=== PATIENT | female | born 1945 | race Caucasian/White ===

== ENCOUNTER → 2019-10-25 | Outpatient (CLI) | payer MEDICARE | END | disposition home or self-care (01) | LOC: SHCH 10:50 | PROVIDERS: ATTEND Internal Medicine Cardiovascular Disease | DX: I07.1 Rheumatic tricuspid insufficiency (principal) | CPT/HCPCS: 93306; 93356 ==

== ENCOUNTER 2022-07-14 16:32 | Emergency (ER) | payer MEDICARE ==
[~2022-07-14] VITALS: Ht 170.2 cm; Wt 79.4 kg
[2022-07-14 17:12] LABS: HEMATOCRIT 34.6 % (36-48); MEAN CORPUSCULAR HEMOGLOBIN 29.3 pg (27.0-33.0); MEAN CORPUSCULAR HGB CONC 33.8 g/dL (32.0-36.0); MEAN CORPUSCULAR VOLUME 86.7 fL (79-99); RED BLOOD CELL COUNT(AUTO) 3.99 MIL/uL (4.00-5.50); RED CELL DISTRIBUTION WIDTH 14.4 % (11.0-15.5)
[2022-07-14 17:21] LABS: POTASSIUM 3.8 mmol/L (3.5-5.1)
[2022-07-14 17:24] LABS: APPEARANCE,URINE CLEAR (CLEAR); BILIRUBIN,URINE NEGATIVE (NEGATIVE); COLOR,URINE COLORLESS (YELLOW); GLUCOSE, URINE (UA) NEGATIVE (NEGATIVE); KETONES,URINE NEGATIVE (NEGATIVE); LEUKOCYTE ESTERASE ,URINE 25 Leu/uL (NEGATIVE); NITRATE,URINE NEGATIVE (NEGATIVE); OCCULT BLOOD,URINE NEGATIVE (NEGATIVE); PH,URINE 5.5 (5.0-8.0); PROTEIN,URINE NEGATIVE (NEGATIVE); UROBILINOGEN,URINE 0.2 mg/dL (0.2-1.0)
[2022-07-14 17:26] LABS: ALBUMIN 3.6 g/dL (3.5-5.0); TOTAL PROTEIN, SERUM 6.9 g/dL (6.0-8.3)
[2022-07-14 17:28] LABS: BACTERIA,URINE RARE /HPF (None Seen); MUCUS,URINE RARE LPF (None Seen); RBC,URINE 0-1 /HPF (0-1)
[2022-07-14] MEDS ORDERED: LORAZEPAM 2 MG/ML 1 ML VIAL ONE (19:46)
[2022-07-14] MEDS ORDERED: LORAZEPAM 2 MG/ML 1 ML VIAL IVP ONE (20:00)
[2022-07-14 21:32] VITALS: BP 128/62
== END 2022-07-14 21:37 ==
LOC: EDH 16:32
DX: S09.8XXA Other specified injuries of head, initial encounter (principal); I10 Essential (primary) hypertension; E03.9 Hypothyroidism, unspecified; E11.9 Type 2 diabetes mellitus without complications; E78.00 Pure hypercholesterolemia, unspecified; G30.9 Alzheimer's disease, unspecified; F02.83 Dementia in other diseases classified elsewhere, unspecified severity, with mood disturbance; F02.84 Dementia in other diseases classified elsewhere, unspecified severity, with anxiety; F20.9 Schizophrenia, unspecified; F31.9 Bipolar disorder, unspecified; W18.39XA Other fall on same level, initial encounter; Y93.89 Activity, other specified; Y92.218 Other school as the place of occurrence of the external cause; Y99.8 Other external cause status
CPT/HCPCS: 99285; 70450; 96374; 80053; 85027; 81001; 36415; 72125; J2060

== ENCOUNTER 2022-11-09 10:53 | Emergency (ER) | payer MEDICARE ==
[~2022-11-09] VITALS: Ht 162.6 cm; Wt 68.0 kg
[2022-11-09 11:29] LABS: EOSINOPHILS % (AUTO) 0.4 % (0.0-8.0); HEMATOCRIT 38.3 % (36-48); LYMPHOCYTES % (AUTO) 13.4 % (21.0-51.0); MEAN CORPUSCULAR HEMOGLOBIN 30.1 pg (27.0-33.0); MEAN CORPUSCULAR HGB CONC 33.7 g/dL (32.0-36.0); MEAN CORPUSCULAR VOLUME 89.5 fL (79-99); MONOCYTES % (AUTO) 7.7 % (3.0-13.0); NEUTROPHILS % (AUTO) 78.3 % (40.0-77.0); PLATELET COUNT (AUTO) 136 K/uL (130-400); RED BLOOD CELL COUNT(AUTO) 4.28 MIL/uL (4.00-5.50); WHITE BLOOD COUNT (AUTO) 5.2 K/uL (4.8-10.8)
[2022-11-09 12:30] LABS: ALBUMIN 3.9 g/dL (3.5-5.0); CREATININE 0.9 mg/dL (0.5-1.5); TOTAL PROTEIN, SERUM 7.6 g/dL (6.0-8.3)
[2022-11-09 13:49] LABS: POTASSIUM 4.1 mmol/L (3.5-5.1)
[2022-11-09] MEDS ORDERED: 0.9% NACL 500ML IV.SOLN 500 ML IV SCH (14:00)
[2022-11-09 15:35] VITALS: BP 146/54
== END 2022-11-09 15:34 | disposition home or self-care (01) ==
LOC: EDH 10:53
DX: F03.90 Unspecified dementia, unspecified severity, without behavioral disturbance, psychotic disturbance, mood disturbance, and anxiety (principal); E86.0 Dehydration; F41.9 Anxiety disorder, unspecified; F32.A Depression, unspecified; I10 Essential (primary) hypertension; E03.9 Hypothyroidism, unspecified; E11.9 Type 2 diabetes mellitus without complications; F20.9 Schizophrenia, unspecified; W18.30XA Fall on same level, unspecified, initial encounter; Y93.89 Activity, other specified; Y92.89 Other specified places as the place of occurrence of the external cause; Y99.8 Other external cause status
CPT/HCPCS: 36415; 72170; 73030; 80053; 85025; 93005

== ENCOUNTER 2024-06-16 05:07 | Emergency (ER) | payer MEDICARE ==
[~2024-06-16] VITALS: Ht 160 cm; Wt 56.2 kg
[~2024-06-16 05:07] MED LIST: AMLO-257 PO; ATOR40TA69 PO; BISA10SU61 PR; DOCU100C33 PO; ERGO500093 PO; LACT10SO9 PO; LEVO112C4 PO; LORA0.5T83 PO; MELA5CAP PO; NEOM28.44 TP; OLAN5TAB76 PO; ONDA-104 PO; SIME80TA12 PO; TRAZ-187 PO; VITAD50000 PO
--- NOTE | 2024-06-16 05:35 | ERN ---
General Chief Complaint: Abdominal Pain Stated Complaint: POSSIBLE BOWEL OBSTRUCTION Time Seen by MD: 05:15 History of Present Illness Initial Comments 79-year-old female brought in by EMS from [facility] for possible bowel obstruction. Patient had a bowel obstruction last week that had resolved. According to EMS, the long term staff reports that the patient has not had a stool in a couple of days, and began having distention of the abdomen and vomited possible feces earlier in the day. They underwent a KUB which shows possible bowel obstruction. Patient does not communicate due to advanced dementia. Patient is a DNR. Allergies: Coded Allergies: No Known Drug Allergies (Unverified Allergy, Unknown, 07/14/22) Home Meds Reported Medications Melatonin (Melatonin) 5 Mg Capsule, 1 CAP PO HS for sleep for 30 Days, #30 CAP 0 Refills 06/10/24 Olanzapine (Olanzapine) 5 Mg Tablet, 1 TAB PO HS for 30 Days, #30 TAB 0 Refills 06/10/24 Ergocalciferol (Vitamin D2) (Vitamin D2) 1,250 Mcg (52462 Unit) Capsule, 1 CAP PO QWEEK for 28 Days, #4 CAP 0 Refills 06/10/24 Levothyroxine Sodium (Levothyroxine) 112 Mcg Capsule, 1 CAP PO DAILY for 30 Days, #30 CAP 0 Refills 06/10/24 Lorazepam (Ativan) 0.5 Mg Tablet, 1 TAB PO TID PRN for anxiety for 30 Days, #60 TAB 0 Refills 06/10/24 Neomycn/Baci Zn/Pmyx Bs/Pramox (Triple Antibiotic Plus Ointmnt) 3.5-10K-10 Oint...g., 28.4 GM TP DAILY 06/10/24 Ondansetron HCl (Ondansetron HCl) 4 Mg Tablet, 4 MG PO TID PRN for NAUSEA/VOMITING, TAB 06/10/24 Bisacodyl (Dulcolax) 10 Mg Supp.rect, 1 SUPP LA DAILY PRN for CONSTIPATION for 10 Days, #10 SUPP 0 Refills 06/10/24 Simethicone (Simethicone) 80 Mg Tab.chew, 40 MG PO TID PRN for GI GAS, TAB.CHEW 12/31/23 Cholecalciferol (Vitamin D3) 1,250 Mcg (27866 Unit) Cap, 25678 UNITS PO DAILY, CAP 12/31/23 Lactulose (Lactulose) 20 Gram/30 Ml Solution, 20 GM PO DAILY for ELEVATED AMMONIA LEVEL, ML 12/31/23 Docusate Sodium (Docusate Sodium) 100 Mg Capsule, 100 MG PO DAILY, CAP 12/31/23 Amlodipine Besylate (Amlodipine Besylate) 5 Mg Tablet, 5 MG PO BID, TAB 12/31/23 Trazodone HCl (Trazodone HCl) 100 Mg Tablet, 100 MG PO HS, TAB 12/31/23 Atorvastatin Calcium (LIPITOR) 40 Mg Tablet, 40 MG PO HS, TAB 12/31/23 Discontinued Reported Medications Lisinopril (Lisinopril) 10 Mg Tablet, 10 MG PO DAILY, TAB 12/31/23 Levothyroxine Sodium (Levothyroxine) 137 Mcg Capsule, 137 MCG PO DAILY, CAP 12/31/23 Olanzapine (Zyprexa) 7.5 Mg Tablet, 7.5 MG PO DAILY, TAB 12/31/23 Past Medical History Past Medical History: Anxiety, Arthritis, Bipolar, Diabetes-Type II, High Cholesterol, Hypertension, Other Medical History Other: ALZHEIMERS, BOWEL OBSTRUCTION Past Surgical History: Unknown ROS Dictation Unable to obtain due to patient's baseline dementia. Physical Exam Physical Exam Dictation VITAL SIGNS: Reviewed. GENERAL APPEARANCE: Frail, advanced age, demented unable to speak, no obvious distress HEAD AND FACE: Non-traumatic. EYES: PERRL, pink conjunctivas, eyelid no trauma, anterior chamber clear. EARS: Pinnas intact and no signs of trauma or erythema. Ear canals clear and no discharge. TMs no erythema. NOSE: No discharge, no bleeding. OROPHARYNX: Mouth normal, teeth no caries, tongue pink. Pharynx clear, no erythema. Tonsils no exudates, no abscesses noted. Mucous membrane moist. NECK: Supple, non-tender, no thyromegaly, no masses, no JVD, no bruits. BREAST: Deferred. CHEST: No tenderness, no crepitus, no paradoxical movement, no retractions. LUNGS: Clear, well-ventilated, symmetric, no rales, no wheezing, no rhonchi, no stridor, good breath sounds bilaterally. HEART: Regular rate, regular rhythm, no murmur, no gallops. VASCULAR: No peripheral edema. ABDOMEN: Moderate distention RECTAL: Deferred. GENITAL: Deferred. NEUROLOGICAL: Baseline mentation, does not speak MUSCULOSKELETAL: Does not ambulate EXTREMITIES: Nontender, full range of motion. SKIN: Color pink, dry, no turgor, no rash, no lacerations, no abrasions, no contusions. LYMPHATICS: Deferred. Results Laboratory and Microbiology Lab and Micro Result Laboratory Tests Test 06/16/24 05:39 White Blood Count 10.8 K/uL (4.8-10.8) Red Blood Count 4.88 MIL/uL (4.00-5.50) Hemoglobin 14.1 g/dL (12.0-16.0) Hematocrit 43.4 % (36-48) Mean Corpuscular Volume 88.9 fL (79-99) Mean Corpuscular Hemoglobin 28.9 pg (27.0-33.0) Mean Corpuscular Hemoglobin Concent 32.5 g/dL (32.0-36.0) Red Cell Distribution Width 14.4 % (11.0-15.5) Platelet Count 141 K/uL (130-400) Mean Platelet Volume 11.8 fL (7.5-10.5) H Immature Granulocyte % (Auto) 0.4 % (0-1) Neutrophils (%) (Auto) 88.5 % (40.0-77.0) H Lymphocytes (%) (Auto) 4.6 % (21.0-51.0) L Monocytes (%) (Auto) 6.2 % (3.0-13.0) Eosinophils (%) (Auto) 0.2 % (0.0-8.0) Basophils (%) (Auto) 0.1 % (0.0-5.0) Neutrophils # (Auto) 9.5 K/uL (1.8-7.7) H Lymphocytes # (Auto) 0.5 K/uL (1.0-4.8) L Monocytes # (Auto) 0.7 K/uL (0.1-1.0) Eosinophils # (Auto) 0.02 K/uL (0.00-0.70) Basophils # (Auto) 0.01 K/uL (0.00-0.20) Absolute Immature Granulocyte (auto 0.04 K/uL (0-1) Nucleated Red Blood Cells 0.0 % (0.0-0.19) Sodium Level 148 mmol/L (136-145) H Potassium Level 4.0 mmol/L (3.5-5.1) Chloride Level 108 mmol/L (101-111) Carbon Dioxide Level 33 mmol/L (21-32) H Blood Urea Nitrogen 18 mg/dL (7-18) Creatinine 0.9 mg/dL (0.5-1.0) Glomerular Filtration Rate Calc 65 mL/min (>90) Random Glucose 240 mg/dL (70-105) H Lactic Acid Level 1.8 mmol/L (0.8-2.5) Total Calcium 9.4 mg/dL (8.5-10.1) Total Bilirubin 0.8 mg/dL (0.2-1.0) Direct Bilirubin 0.2 mg/dL (0.0-0.3) Aspartate Amino Transf (AST/SGOT) 18 U/L (10-37) Alanine Aminotransferase (ALT/SGPT) 25 U/L (12-78) Alkaline Phosphatase 87 U/L (50-136) Troponin I High Sensitivity 12 ng/L (4-50) Total Protein 7.2 g/dL (6.0-8.3) Albumin 3.7 g/dL (3.5-5.0) Lipase 467 U/L (16-77) H MDM CC: Vomiting and abdominal distention, concern for a bowel obstruction Historian: EMS. Patient has a history of dementia, unable to get any history because the patient does not communicate. I also reviewed the patient's chart. Comorbidities: Advanced age, advanced Alzheimer's dementia, breast cancer, high cholesterol, hypertension Limitations by social determinants of health: None Differential diagnosis: Bowel obstruction, perforation I have also derangement, deconditioning, sepsis, other. External chart review: I reviewed the discharge summary by Dr. Zamudio from the recent 06/10/2024 admission. The time of the patient had a possible bowel perforation which was ruled out, diagnosed with a bowel obstruction that resolved without surgery. EKG: Sinus rhythm rate of 74 left axis deviation good R-wave progression. Few ectopic beats. T-wave inversions lead V4 to V6. Goals of care: I had a goals of care conversation with the patient's son, Jose. He is the power of document review attorney. He reports that the patient was a DNR. He prefers conservative management at this time. He has not want any major surgeries, dialysis, intubation is or any other major treatments. He was okay with IV fluids, IV antibiotics, NG tube and minimally invasive procedures and treatments. CT scan Abdomen and pelvis without contrast (independently interpreted by me ): Right pleural effusion. Ascites. Gastric and small bowel dilation with air-fluid levelsconsistent with obstruction, no obvious free air or perforation. Labs: CBC has a left shift without leukocytosis. 88% neutrophils. No bands. Chemistry panel shows mild dehydration in the electrolytes, hyperglycemia glucose 240. Lipase 467. Troponin stable. Treatment in the ER: 2 L normal saline, 2 mg IV morphine, Zosyn IV, Dilaudid IV, NG tube placement For decompression. Consultations Radiologist: I spoke with the radiologist regarding the CT scan. He reports that there is possibly a volvulus and this is surgical fix. General surgery: He will evaluate the patient, but this is surgical patient was the patient does not want surgery recommendation is for palliative care. Hospitalist: Discussed case for admission. Patient was evaluated with the hospitalist, the patient family reports that they one hospitalization at this time. They prefer to go home for palliative care. They do not want any surgeries or further invasive treatments. No further blood work. Deescalation of care: The family has been expecting the patient to not do well, and they are expecting to go on palliative care. the family reports that they prefer to go home at this time for palliation. At baseline patient has dementia, she is bed-bound, she was not communicate. They already had meetings with the hospice care this has been set up for them. Patient was discharged for home palliative care per family request. REASON: liklely obstruction ORDERING PHYSICIAN: PAMELA KWOK DO PROCEDURE: ABD PEL WO - CT ABDOMEN/PELVIS W/O CONTRAST CT ABDOMEN WITHOUT CONTRAST. CT PELVIS WITHOUT CONTRAST. INDICATION: Obstruction evaluation TECHNIQUE: Routine transaxial imaging using 5 mm slice thickness through the abdomen and pelvis without the administration of IV contrast. Thin slice reconstructions are also provided. Coronal and sagittal reformatted images acquired for interpretation. CT was performed with one or more of the following dose reduction techniques: Automated exposure control, adjustment of the mA and/or kV according to patient size, or use of iterative reconstruction technique. COMPARISON: None FINDINGS: ON NONCONTRAST IMAGING: ABDOMEN: Heart size is normal. Coronary arterial wall calcific plaque noted. Small right pleural effusion with subjacent passive densities. No abnormal renal calcifications, hydronephrosis, perinephric inflammation, or proximal hydroureter detected. The liver is normal in size and smooth in contour without biliary duct dilation. The spleen is normal in size and attenuation. The gallbladder it is not well-visualized. The pancreas is not well-visualized. The adrenal glands appear normal. No significant abdominal, retrocrural or retroperitoneal adenopathy noted. No evidence for intra-abdominal free air or organized fluid collection. Small amount of free fluid scattered throughout the abdomen and pelvis. No aortic aneurysmal dilation identified. PELVIS: No abnormal calcifications within the urinary bladder or distal ureters. No evidence for free air or organized pelvic fluid collection. No significant pelvic adenopathy detected. Ascending colon and cecum are not anatomically located. A loop of small bowel extends into what appears to represent a volvulus, potentially at the proximal margin of the cecum. Stomach is severely distended with fluid. The cecum may be present as a moderately dilated structure inferior to massively distended left upper abdominal viscus. Several diverticula along the distal colon. Mild thoracolumbar spondylosis includes extremely shallow lumbar levoscoliosis. IMPRESSION: 1. Findings suggesting acute obstruction/volvulus and associated small-volume abdominopelvic ascites without evidence for pneumatosis or pneumoperitoneum at this juncture, perhaps related to right paraduodenal internal hernia or other etiology, and for which immediate emergent surgical evaluation is recommended. 2. Distal colonic diverticulosis. 3. Small right pleural effusion with subjacent passive atelectasis. 4. Arteriosclerotic disease as described. ED Course Orders Procedure Category Date Status Time Cbc With Differential LAB 06/16/24 Complete 05:15 Troponin I High LAB 06/16/24 Complete Sensitivity 05:15 0.9%Nacl 1000ml (Ns PHA 06/16/24 Complete 1000ml) 05:30 Ct Abdomen/Pelvis W/O CT 06/16/24 Resulted Contrast 05:15 Lipase LAB 06/16/24 Complete 05:15 Basic Metabolic Panel LAB 06/16/24 Complete 05:15 Hepatic Function Panel LAB 06/16/24 Complete 05:15 Lactic Acid LAB 06/16/24 Complete 05:15 12 Lead Ekg Tracing- EKG 06/16/24 Resulted Technical 05:15 Hydromorphone 1 Mg PHA 06/16/24 Complete Inj (Dilaudid 1mg Inj 07:30 Ng Tube Insertion CPOE 06/16/24 Transmitted 07:12 Ngt To Low CPOE 06/16/24 Transmitted Intermittent Suctn 07:12 Zosyn 3.375gm+Ns 50ml PHA 06/16/24 Complete (Zosyn 3.375gm+Ns 07:30 Code Status CODE 06/16/24 Transmitted 07:38 Curriculum Development Manager SS 06/16/24 Transmitted Evaluaton 09:21 Morphine 2mg Syg PHA 06/16/24 Complete (Morphine 2mg Syg) 15:00 0.9%Nacl 1000ml (Ns PHA 06/16/24 Complete 1000ml) 16:30 0.9%Nacl 1000ml (Ns PHA 06/16/24 Complete 1000ml) 16:30 Case Management CM 06/16/24 Transmitted Evaluation 17:46 Current Medications Medications (Trade) Dose Ordered Sig/Gennaro Route PRN Reason Start Time Stop Time Status Last Admin Dose Admin Hydromorphone HCl (DiLAUDid 1MG INJ) 1 mg ONCE ONCE IVP 06/16/24 07:30 06/16/24 07:31 DC 06/16/24 07:47 Morphine Sulfate (morPHINE 2MG SYG) 2 mg ONCE ONCE IVP 06/16/24 15:00 06/16/24 15:01 DC 06/16/24 14:43 Piperacillin Sod/ Tazobactam Sod (Zosyn 3.375gm+NS 50ml) 3.375 gm ONCE ONCE IV 06/16/24 07:30 06/16/24 07:31 DC 06/16/24 07:47 Sodium Chloride 1,000 ml @ 0 mls/hr ONCE ONCE IV 06/16/24 05:30 06/16/24 05:32 DC 06/16/24 06:44 Sodium Chloride 1,000 ml @ 100 mls/hr Q10H IV 06/16/24 16:30 06/16/24 20:16 DC 06/16/24 16:13 Sodium Chloride 1,000 ml @ 100 mls/hr Q10H IV 06/16/24 16:30 06/16/24 20:16 DC Vital Signs Date Time Temp Pulse Resp B/P (MAP) Pulse Ox O2 Delivery O2 Flow Rate FiO2 06/16/24 19:47 138/83 Room Air* 0 21 06/16/24 14:44 98.4 81 18 168/86 98 Room Air* 0 06/16/24 13:07 98.4 73 18 168/86 96 Room Air* 0 06/16/24 10:40 98.4 72 18 139/82 96 Room Air* 0 06/16/24 07:29 98.4 63 18 178/91 97 Room Air* 0 06/16/24 05:55 98.4 68 18 164/80 97 Room Air* 0 06/16/24 05:11 98.1 65 16 176/83 98 Room Air 0 DX & DISP Disposition: Discharge Departure Impression: Primary Impression: Bowel obstruction Additional Impressions: Hyperglycemia, Dehydration, Ascites, Colonic volvulus, Palliative care status Condition: Other(comment) (critical condition, home to palliatiative care per family request) Referrals: NONE (PCP) PAMELA KWOK DO Jun 16, 2024 05:35 ANITHA MATTHEWS MD Jun 16, 2024 09:07
[2024-06-16 05:51] LABS: BASOPHILS # (AUTO) 0.01 K/uL (0.00-0.20); BASOPHILS % (AUTO) 0.1 % (0.0-5.0); EOSINOPHILS # (AUTO) 0.02 K/uL (0.00-0.70); EOSINOPHILS % (AUTO) 0.2 % (0.0-8.0); HEMATOCRIT 43.4 % (36-48); IMMATURE GRANULOCYTE ABSOLUTE 0.04 K/uL (0-1); LYMPHOCYTES # (AUTO) 0.5 K/uL (1.0-4.8); LYMPHOCYTES % (AUTO) 4.6 % (21.0-51.0); MEAN CORPUSCULAR HEMOGLOBIN 28.9 pg (27.0-33.0); MEAN CORPUSCULAR HGB CONC 32.5 g/dL (32.0-36.0); MEAN CORPUSCULAR VOLUME 88.9 fL (79-99); MONOCYTES # (AUTO) 0.7 K/uL (0.1-1.0); MONOCYTES % (AUTO) 6.2 % (3.0-13.0); NEUTROPHILS # (AUTO) 9.5 K/uL (1.8-7.7); NEUTROPHILS % (AUTO) 88.5 % (40.0-77.0); PLATELET COUNT (AUTO) 141 K/uL (130-400); RED BLOOD CELL COUNT(AUTO) 4.88 MIL/uL (4.00-5.50); RED CELL DISTRIBUTION WIDTH 14.4 % (11.0-15.5); WHITE BLOOD COUNT (AUTO) 10.8 K/uL (4.8-10.8)
--- NOTE | 2024-06-16 06:06 | NUR ---
PATIENT WAS HERE NOT EVEN A WEEK AGO, VOMITING X 3 TIMES, FECES- SMELLING LIKE VOMITUS-BROWNISH IN COLOUR
[2024-06-16 06:09] LABS: ALBUMIN 3.7 g/dL (3.5-5.0); BILIRUBIN,DIRECT 0.2 mg/dL (0.0-0.3); BILIRUBIN,TOTAL 0.8 mg/dL (0.2-1.0); CREATININE 0.9 mg/dL (0.5-1.0); TOTAL PROTEIN, SERUM 7.2 g/dL (6.0-8.3)
--- NOTE | 2024-06-16 06:19 | NUR ---
DNR STATUS- SECURED, SIGNED HER PT'S SON RAMA (POA)
--- NOTE | 2024-06-16 06:19 | NUR ---
AW ABDO CT RESULTS PRIOR NG INSERTION PER DR PICKENS
[2024-06-16] MEDS: 0.9%NACL 1000ML 1,000 ML IV ONE (06:44)
--- NOTE | 2024-06-16 07:07 | EKG ---
[facility] Test Date: 2024-06-16 Test Time: 05:47:10 Pat Name: NADER PALENCIA Department: ED Room: Gender: F Award Clerk: [id number] : 1945 Requested By: PAMELA KWOK Order Number: [id number] Reading MD: Tray Erickson Measurements Intervals Brea Rate: 74 P: 39 WV: 160 QRS: -21 QRSD: 90 T: 155 QT: 493 QTc: 544 Interpretive Statements Sinus rhythm Atrial premature complex Repol abnrm suggests ischemia, anterolateral Prolonged QT interval Compared to ECG 06/10/2024 18:45:17 Early repolarization now present Possible ischemia now present Prolonged QT interval now present Ectopic atrial rhythm no longer present T-wave abnormality no longer present Electronically Signed On 06-17-2024 10:28:44 ELECTRON GUN INSPECTOR by Tray Erickson Please click the below link to view image of tracing.
[2024-06-16] MEDS: ZOSYN 3.375GM +NS 50ML IV ONE (07:47)
[2024-06-16] MEDS: hydroMORPHone 1 MG INJ IVP ONE (07:47)
--- NOTE | 2024-06-16 08:25 | NUR ---
NG TUBE REFUSED FOR NOW PATIENT ALERT X1, PATIENTS DAUGHTER AT BEDSIDE AND POA SPOKE TO US AND WANTED TO HOLD OFF ON NG TUBE FOR NOW TO KEEP PATIENT "COMFORTABLE" OR UNTIL SHE STARTS THROWING UP, PATIENT RESTING IN BED, DAUGHTER AT BEDSIDE
--- NOTE | 2024-06-16 10:40 | NUR ---
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. Daughter states she is waiting for surgeon to see pt and determine if pt is a candidate for surgery and what recovery will be like to pt if she has surgery. Family feels that with pt's severe dementia, recovery would be extreme difficult. With or without surgery, family feels hospice is the best option for pt at [place]. Daughter wants to talk to surgeon before starting hospice referral. SW to follow and assist as needed
--- NOTE | 2024-06-16 11:04 | HMCIMG ---
CT ABDOMEN WITHOUT CONTRAST. CT PELVIS WITHOUT CONTRAST. INDICATION: Obstruction evaluation TECHNIQUE: Routine transaxial imaging using 5 mm slice thickness through the abdomen and pelvis without the administration of IV contrast. Thin slice reconstructions are also provided. Coronal and sagittal reformatted images acquired for interpretation. CT was performed with one or more of the following dose reduction techniques: Automated exposure control, adjustment of the mA and/or kV according to patient size, or use of iterative reconstruction technique. COMPARISON: None FINDINGS: ON NONCONTRAST IMAGING: ABDOMEN: Heart size is normal. Coronary arterial wall calcific plaque noted. Small right pleural effusion with subjacent passive densities. No abnormal renal calcifications, hydronephrosis, perinephric inflammation, or proximal hydroureter detected. The liver is normal in size and smooth in contour without biliary duct dilation. The spleen is normal in size and attenuation. The gallbladder it is not well-visualized. The pancreas is not well-visualized. The adrenal glands appear normal. No significant abdominal, retrocrural or retroperitoneal adenopathy noted. No evidence for intra-abdominal free air or organized fluid collection. Small amount of free fluid scattered throughout the abdomen and pelvis. No aortic aneurysmal dilation identified. PELVIS: No abnormal calcifications within the urinary bladder or distal ureters. No evidence for free air or organized pelvic fluid collection. No significant pelvic adenopathy detected. Ascending colon and cecum are not anatomically located. A loop of small bowel extends into what appears to represent a volvulus, potentially at the proximal margin of the cecum. Stomach is severely distended with fluid. The cecum may be present as a moderately dilated structure inferior to massively distended left upper abdominal viscus. Several diverticula along the distal colon. Mild thoracolumbar spondylosis includes extremely shallow lumbar levoscoliosis. IMPRESSION: 1. Findings suggesting acute obstruction/volvulus and associated small-volume abdominopelvic ascites without evidence for pneumatosis or pneumoperitoneum at this juncture, perhaps related to right paraduodenal internal hernia or other etiology, and for which immediate emergent surgical evaluation is recommended. 2. Distal colonic diverticulosis. 3. Small right pleural effusion with subjacent passive atelectasis. 4. Arteriosclerotic disease as described.
[2024-06-16] MEDS: morPHINE 2 MG SYG IVP ONE (14:43)
[2024-06-16 14:44] VITALS: PULSE 81; RESP 18; TEMP 98.4; O2SAT 98
[2024-06-16] MEDS: 0.9%NACL 1000ML 1,000 ML IV SCH ×2 (16:13→16:30)
--- NOTE | 2024-06-16 17:55 | NUR ---
[facility] CM SPOKE TO "KARLA" TESSA LEE , STATED SON PEDRITO ONTIVEROS WOULD LIKE PATIENT TO RETURN TO [facility] SOON POSSIBLE. REP REQUESTING CONSENT, ORDER, AND CLINICALS TO BE SENT. CM SPOKE TO RAMA PALENCIA , CONFIRMED HE IS PT'S MPOA. MADE AWARE OF ABOVE. MPOA AGREEABLE WITH PLAN. TELEPHONE CONSENT OBTAINED [facility] FOR [facility], WITNESSED BY FELICIA HARRISON CM. CM SPOKE TO PT'S PRIMARY NURSE BETZY MADE AWARE OF ABOVE. ORDER ENTERED FOR HOSPICE TO EVAL AND TREAT. CM SENT ORDER, ED CLINICALS TO [facility] VIA SECURE FAX AND EMAIL. CM SPOKE TO [facility], WILL COME EVALUATE PT, UPDATED OF THE ABOVE. PT PENDING ACCEPTANCE TO [facility] AT THIS TIME. EMS FILLED OUT AND FAXED FOR TODAY IN CASE, PRIMARY NURSE TO CALL [facility] ONCE PT HAS ACCEPTANCE FOR [facility]. CM TO CONTINUE TO FOLLOW UP. Addendum: 06/16/24 at 1801 by EHSAN FERMIN LVN CM Amended: Links added.
--- NOTE | 2024-06-16 18:43 | NUR ---
PENDING EMS TRANSFER: JUST SPOKE TO MISHEL FROM [facility] [place] [facility]. INFORMATION PROVIDED AND PT WILL BE PUT IN THE CUE TO TRANSFER TO [place] IN [place] AND WILL BE PLACED ON HOSPICE [facility].
--- NOTE | 2024-06-16 18:53 | NUR ---
REPORT GIVEN TO AZUL NGUYEN SPOKE TO BULMARO BAUTISTA.
[2024-06-16 19:47] VITALS: BP 138/83
== END 2024-06-16 20:13 | disposition home or self-care (01) ==
LOC: EDH 05:07
DX: K56.699 Other intestinal obstruction unspecified as to partial versus complete obstruction (principal); E11.65 Type 2 diabetes mellitus with hyperglycemia; E86.0 Dehydration; R18.8 Other ascites; K56.2 Volvulus; K57.30 Diverticulosis of large intestine without perforation or abscess without bleeding; I10 Essential (primary) hypertension; F02.C4 Dementia in other diseases classified elsewhere, severe, with anxiety; E78.00 Pure hypercholesterolemia, unspecified; M19.90 Unspecified osteoarthritis, unspecified site; Z51.5 Encounter for palliative care; Z79.890 Hormone replacement therapy; Z79.899 Other long term (current) drug therapy
CPT/HCPCS: 99285; 74176; 96365; 96361; 96375; 80076; 84484; 80048; 83690; 85025; 83605; 36415; 93005; J1171; J2270; J7030 ×2; J2543